=== PATIENT | male | born 1990 | race Two or more races ===

== ENCOUNTER 2020-01-06 16:57 | Emergency (ER) | payer OTHER ==
[~2020-01-06] VITALS: Ht 175.3 cm; Wt 79.4 kg
--- NOTE | 2020-01-06 17:09 | NUR ---
came in for right leach lac and left shoulder pain s/p fall from skateboarding, to ER bed 9, hooked to monitor, patient aao X 4, awaiting MD brown
--- NOTE | 2020-01-06 17:14 | NUR ---
MARELY LEE AT BEDSIDE
--- NOTE | 2020-01-06 17:26 | NUR ---
DIRECTOR WOMEN AT BEDSIDE FOR XRAY
[2020-01-06] MEDS ORDERED: IBUPROFEN 400 MG TABLET PO ONE (17:30)
[2020-01-06] MEDS ORDERED: TDAP [DIPH/PERTUSSIS/TET] 0.5 ML VIAL IM ONE ×2 (17:30)
[2020-01-06] MEDS ORDERED: LIDOCAINE 1%-EPI 1:100,000 20 ML VIAL ONE (17:30)
[2020-01-06] MEDS ORDERED: IBUPROFEN 400 MG TABLET ONE (17:30)
[2020-01-06] MEDS ORDERED: LIDOCAINE 1%-EPI 1:100,000 20 ML VIAL TP ONE (17:30)
--- NOTE | 2020-01-06 17:34 | NUR ---
CHUY TREVIZO AT BEDSIDE FOR CLEANING OF WOUND
--- NOTE | 2020-01-06 18:01 | NUR ---
MARELY LEE AT BEDSIDE FOR SUTURING
[2020-01-06 18:28] VITALS: BP 132/74
--- NOTE | 2020-01-06 18:28 | NUR ---
Patient discharged to home in stable condition. Written and verbal after care instructions given. Patient verbalizes understanding of instruction.
== END 2020-01-06 18:28 | disposition home or self-care (01) ==
LOC: ER 16:58
DX: S81.811A Laceration without foreign body, right lower leg, initial encounter (principal); M25.512 Pain in left shoulder; V00.131A Fall from skateboard, initial encounter; Y93.51 Activity, roller skating (inline) and skateboarding; Y92.89 Other specified places as the place of occurrence of the external cause; Y99.8 Other external cause status
CPT/HCPCS: 12002; 73030; 73590; 90471; 90715; 99284; A6403 ×2; J3490